=== PATIENT | male | born 1965 | race African-American/Black ===

== ENCOUNTER 2017-12-05 21:39 | Emergency (ER) | payer OTHER ==
[~2017-12-05] VITALS: Ht 182.9 cm; Wt 68.0 kg
[~2017-12-05 21:39] MED LIST: B COMPLETE1 EACH PO; FLEXERIL10 MG PO; INTUNIV PO; INTUNIV2 MG PO; LATUDA20 MG PO; LEXAPRO10 MG PO; LEXAPRO20 MG PO; MOTRIN800 MG PO; MULTI VITAMIN1 EACH PO; NAPROXEN500 MG PO; PERCOCET 5/31 TABLET PO; PROAIR HFA8.5 GM IH; SEROQUEL50 MG PO; TRAZODONE HCL50 MG PO; ULTRAM50 MG PO; VYVANSE20 MG PO; VYVANSE50 MG PO
[2017-12-05] MEDS ORDERED: MOTRIN800 MG PO (22:51)
[2017-12-05] MEDS ORDERED: NORCO 5/3251 TABLET PO (22:51)
[2017-12-05 23:13] VITALS: BP 108/76
== END 2017-12-05 23:27 | disposition home or self-care (01) ==
LOC: EME 21:39 → EXP 21:39
DX: S93.402A Sprain of unspecified ligament of left ankle, initial encounter (principal); X50.1XXA Overexertion from prolonged static or awkward postures, initial encounter; Y93.67 Activity, basketball
CPT/HCPCS: 73610; 99281; 99283